=== PATIENT | male | born 1965 | race Caucasian/White ===

== ENCOUNTER 2021-05-14 07:02 | Day surgery (SDC) | payer BC, SELFPAY ==
[2021-05-07 13:21] VITALS: BMI 27.1
--- NOTE | 2021-05-12 15:13 | P.CONAN_ITS ---
Documented by User: Rylie Waldrop 05/13/21 12:30 HPI - Anesthesia Eval Consult details Narrative: 56yo M for Colonoscopy with Antibiotics Coumadin for s/p AVR (lovenox bridge to be ordered by PCP) Unable to reach patient by phone. No broadcast correspondent info or ECHO on record. [facility] Past Medical History Medical History Acid reflux Aortic valvular disease Hemolysis HTN (hypertension) Hyperlipidemia Iron deficiency anemia Ocular migraine On anticoagulant therapy Surgical History Surgical History H/O aortic valve replacement History of esophagogastroduodenoscopy (EGD) Hx of colonoscopy Social History Social History Patient Tobacco Use Status: Never used Tobacco Use of substances other than those prescribed or required for medical reasons: No Are you DNR?: No Advance Directives: No Advance Directives Information Provided: Yes Meds Allergies Allergy/AdvReac Type Severity Reaction Status Date / Time No Known Allergies Allergy Verified 05/14/21 07:13 Home Medications Medication Instructions Recorded Confirmed Last Taken Type aspirin 81 mg PO DAILY 05/07/21 05/14/21 05/06/21 History famotidine 20 mg PO DAILY 05/07/21 05/07/21 Unknown History lisinopril 5 mg PO DAILY 05/07/21 05/14/21 05/13/21 18:00 History multivitamin 1 tab PO DAILY 05/07/21 05/07/21 Unknown History pravastatin 05/07/21 Unknown History warfarin 05/07/21 05/08/21 18:00 History Exam Exam Date and Time: May 12, 2021 1513 Height,Weight and Vital Signs: Height 5 ft 10 in Weight 85.729 kg Assessment and Plan Assessment Anesthesia Assessment: Chart Reviewed Documented by User: Deidra Case 05/14/21 08:20 [facility] Past Medical History Medical History Acid reflux Aortic valvular disease Hemolysis HTN (hypertension) Hyperlipidemia Iron deficiency anemia Ocular migraine On anticoagulant therapy Surgical History Surgical History H/O aortic valve replacement History of esophagogastroduodenoscopy (EGD) Hx of colonoscopy Social History Social History Patient Tobacco Use Status: Never used Tobacco Use of substances other than those prescribed or required for medical reasons: No Are you DNR?: No Advance Directives: No Advance Directives Information Provided: Yes Meds Allergies Allergy/AdvReac Type Severity Reaction Status Date / Time No Known Allergies Allergy Verified 05/14/21 07:13 Home Medications Medication Instructions Recorded Confirmed Last Taken Type aspirin 81 mg PO DAILY 05/07/21 05/14/21 05/06/21 History famotidine 20 mg PO DAILY 05/07/21 05/07/21 Unknown History lisinopril 5 mg PO DAILY 05/07/21 05/14/21 05/13/21 18:00 History multivitamin 1 tab PO DAILY 05/07/21 05/07/21 Unknown History pravastatin 05/07/21 Unknown History warfarin 05/07/21 05/08/21 18:00 History Exam Airway Mallampati Class: II TM Dist: >3cm Neck ROM: Full Heart: RRR Lungs: CTA
[2021-05-14 07:20] VITALS: BMI 26.5
[2021-05-14 07:24] VITALS: BP 116/73; PULSE 71; RESP 16; TEMP 36.8; O2SAT 97
[2021-05-14] MEDS: Lactated Ringers 1,000 ML 50 ML IVCONT (07:33)
[2021-05-14] MEDS: Ampicillin Sodium 2 GM in 0.9 % Sodium Chloride 100 ML IV (07:38)
[2021-05-14 07:44] LABS: INTERNATIONAL NORM RATIO 1.2 (0.9-1.1); Prothrombin Time 13.2 SEC (9.9-13.0)
[2021-05-14] MEDS: Gentamicin Sulfate/NaCl 80 MG/100 ML PIGGYBACK 100 MG IV (07:47)
--- NOTE | 2021-05-14 07:51 | PC.NURSE ---
Gold wedding band x1 removed by patient and placed in pants pocket per request.
[2021-05-14 09:10] VITALS: BP 88/53; PULSE 64; RESP 18; TEMP 36.9; O2SAT 97
--- NOTE | 2021-05-14 09:15 | PM.OP ---
Brief Operative Note Date of Service: 05/14/21 Pre-op diagnosis: Screening Post-op diagnosis: other (Colon polyps) Procedure: Colonoscopy to the cecum and TI with biopsy and removal of polyps with placement of Resolution clips on each polypectomy site. Surgeon: Ramon Turcios Anesthesia: MAC Was an [employer] used for this Procedure?: No Estimated blood loss (mL): 4.0 Pathology: other (A. Cecal polyp B. Polyp at 40cm C. Polyp at 30cm) Condition: stable Disposition: PACU
[2021-05-14 09:25] VITALS: BP 97/56; PULSE 60; RESP 18; TEMP 36.9; O2SAT 98
--- NOTE | 2021-05-14 11:14 | HO.POSTANES ---
Post Anesthesia Evaluation Post Anesthesia Evaluation Vital Signs: Vital Signs Temp Pulse Resp BP Pulse Ox 05/14/21 09:25 98.4 F 60 18 97/56 L 98 05/14/21 09:10 98.4 F 64 18 88/53 L 97 05/14/21 07:24 98.2 F 71 16 116/73 97 Anesthesia: Monitored Mental Status: Awake Pain Control: Satisfactory Nausea/Vomiting: None Hydration: Adequate Anesthesia-Related Issues: No Anes. Related Issues
--- NOTE | 2021-05-14 20:07 | OP_ITS ---
SURGEON: Ramon Turcios MD INDICATIONS: Full consent has been obtained from him for this, including risks of bleeding and perforation. PREOPERATIVE DIAGNOSIS: POSTOPERATIVE DIAGNOSIS: PROCEDURE PERFORMED: Colonoscopy to the cecum and terminal ileum with biopsy and removal of polyps and placement of resolution clips. ESTIMATED BLOOD LOSS: COMPLICATIONS: ANESTHESIA: Monitored anesthesia care. ASSISTANTS: SPECIMENS: PREOPERATIVE DIAGNOSES: Colorectal cancer screening and personal history of tubular adenoma of the colon. POSTOPERATIVE DIAGNOSES: Colorectal cancer screening, personal history of tubular adenoma of the colon, small colon polyps, mild diverticulosis, and small internal hemorrhoids. DESCRIPTION OF PROCEDURE: The patient was placed in the left lateral decubitus position. The digital rectal exam revealed no abnormalities. The Olympus video pediatric colonoscope was entered into the rectum and advanced easily to the cecum. Once in the cecum, I did identify normal-appearing cecal pouch other than approximately 4 mm polyp in the cecum, which appeared to be grossly adenomatous. The appendiceal orifice appeared normal. The ileocecal valve appeared normal. The terminal ileum was cannulated and appeared normal. Scope was then withdrawn back in the cecum. The small polyp was biopsied and completely removed with cold biopsy forceps. A single resolution clip was placed on the polypectomy site with good deployment and good hemostasis. I did this because he has to go back on his Lovenox, Coumadin, and aspirin today in relation to underlying aortic valve replacement. The scope was then slowly withdrawn assessing all mucosal surfaces carefully. Preparation was excellent. At 40 cm and at 30 cm, were flat, but again grossly adenomatous polyps approximately 4 or 5 mm in diameter. These were each biopsied and completely removed with cold biopsy forceps. Resolution clips were placed on the polypectomy sites as well with good deployment and good hemostasis. I did not visualize any other polyps, colitis, nor angiodysplasia. There was a mild amount of sigmoid diverticulosis. In the rectum, scope was retroflexed visualizing small internal hemorrhoids, but no other pathology. The rectal mucosa appeared normal. The scope was straightened out and withdrawn from the patient. He tolerated the procedure well and was returned to the recovery area in stable condition. IMPRESSION: 1. Small colon polyps, status post biopsy and removal, and placement of resolution clips on polypectomy sites. 2. Diverticulosis. 3. Internal hemorrhoids. PLAN: The results of the biopsies will be checked. I would recommend a repeat colonoscopy in 5 years. He was advised that he could resume his Coumadin, Lovenox, and aspirin today as directed by Dr. Stewart. He did receive preprocedure antibiotics for prophylaxis and was given a prescription for amoxicillin to use later today. This has all been discussed with his . MD ARETHA Romero/TAMI / [id number] MTDD
== END 2021-05-14 09:51 | disposition home or self-care (01) ==
PROVIDERS: PCP Internal Medicine; Visit Provider Internal Medicine
PROC: 0DJD8ZZ Inspection of Lower Intestinal Tract, Via Natural or Artificial Opening Endoscopic (ICD-10-PCS; CPT 45378; principal; 2021-05-14 08:20)
DX: Z12.11 Encounter for screening for malignant neoplasm of colon (principal); Z86.010 Personal history of colon polyps; D12.0 Benign neoplasm of cecum; D12.5 Benign neoplasm of sigmoid colon; K57.30 Diverticulosis of large intestine without perforation or abscess without bleeding; K64.8 Other hemorrhoids; I10 Essential (primary) hypertension; D50.9 Iron deficiency anemia, unspecified; Z79.01 Long term (current) use of anticoagulants; Z95.2 Presence of prosthetic heart valve; Z79.82 Long term (current) use of aspirin
CPT/HCPCS: 45380; 36415; 85610; 88305; J0290; J1580